=== PATIENT | female | born 1955 | race Caucasian/White ===

== ENCOUNTER → 2016-11-20 | Outpatient (CLI) | payer OTHER | LOC: MC.RAD 08:48 | DX: Z12.31 Encounter for screening mammogram for malignant neoplasm of breast (principal) ==

== ENCOUNTER → 2017-11-26 | Outpatient (CLI) | payer OTHER | LOC: MC.RAD 06:46 | DX: Z12.31 Encounter for screening mammogram for malignant neoplasm of breast (principal) ==

== ENCOUNTER → 2018-01-07 | Outpatient (CLI) | payer OTHER | LOC: COL.PUL 10:01 | DX: R06.02 Shortness of breath (principal) | CPT/HCPCS: J7674 ==

== ENCOUNTER → 2018-01-25 | Outpatient (CLI) | payer OTHER | LOC: COL.VAS 09:00 | DX: Z53.8 Procedure and treatment not carried out for other reasons (principal); R06.02 Shortness of breath ==

== ENCOUNTER → 2018-02-01 | Outpatient (CLI) | payer OTHER | LOC: COL.VAS 14:15 | DX: I34.0 Nonrheumatic mitral (valve) insufficiency (principal) ==

== ENCOUNTER → 2018-10-06 | Outpatient (CLI) | payer MEDICARE, OTHER ==
[~2018-10-06] VITALS: Ht 156.2 cm; Wt 100.2 kg
[~2018-10-06] MED LIST: ASPIRIN E.C. 8181 MG PO; CELEBREX 200MG200 MG PO; CENTRUM SILVER1 TAB PO; CLARITIN 1010 MG/TAB PO; COENZYME Q-1030 MG PO; DYRENIUM 50MG C50 MG PO; HCTZ 25MG TAB25 MG PO; LIPITOR 10MG10 MG PO; MASON NATURAL1200 MG PO; NASONEX SPRAY17 GM NS; NORVASC 10MG10 MG PO; PRILOSEC 20MG20 MG PO; RT ADVAIR 228 DISKUS IH; SINGULAIR 110 MG/TAB PO; VITAMIN D31000 I1 PO; VOLTAREN GEL 1%1 TU TP; WELLBUTRIN XL150 MG PO
[2018-10-06 08:16] VITALS: BP 136/80; PULSE 68
== END ==
LOC: LIGHT 09-23 11:13
DX: E88.81 Metabolic syndrome and other insulin resistance (principal); R73.01 Impaired fasting glucose; E66.01 Morbid (severe) obesity due to excess calories; I10 Essential (primary) hypertension; Z68.41 Body mass index [BMI] 40.0-44.9, adult; Z71.3 Dietary counseling and surveillance
CPT/HCPCS: G0463

== ENCOUNTER → 2018-10-18 | Outpatient (CLI) | payer MEDICARE, OTHER ==
[~2018-10-18] VITALS: Ht 156.2 cm; Wt 100.0 kg
[2018-10-18 15:44] VITALS: BP 150/70; PULSE 92
== END ==
LOC: LIGHT 11:41
DX: E88.81 Metabolic syndrome and other insulin resistance (principal); R73.01 Impaired fasting glucose; I10 Essential (primary) hypertension; E66.01 Morbid (severe) obesity due to excess calories; Z68.41 Body mass index [BMI] 40.0-44.9, adult; Z71.3 Dietary counseling and surveillance

== ENCOUNTER → 2018-10-26 | Outpatient (CLI) | payer MEDICARE, OTHER | LOC: LIGHT 13:41 | DX: E88.81 Metabolic syndrome and other insulin resistance (principal); R73.01 Impaired fasting glucose; I10 Essential (primary) hypertension; E66.01 Morbid (severe) obesity due to excess calories; Z68.41 Body mass index [BMI] 40.0-44.9, adult; Z71.3 Dietary counseling and surveillance ==

== ENCOUNTER → 2018-11-04 | Outpatient (CLI) | payer MEDICARE, OTHER ==
[~2018-11-04] MED LIST changes: +RIOMET500 MG/5 M
[2018-11-04 15:36] VITALS: BP 146/82; PULSE 76
== END ==
LOC: LIGHT 14:43
DX: E88.81 Metabolic syndrome and other insulin resistance (principal); R73.01 Impaired fasting glucose; I10 Essential (primary) hypertension; E66.01 Morbid (severe) obesity due to excess calories; Z71.3 Dietary counseling and surveillance
CPT/HCPCS: G0463

== ENCOUNTER → 2018-12-02 | Outpatient (CLI) | payer MEDICARE, OTHER ==
[~2018-12-02] MED LIST changes: +PROAIR HFA0.09 MG/AC IH; +RT SPIRIVA18 MCG IH
== END ==
LOC: LIGHT 14:33
DX: E88.81 Metabolic syndrome and other insulin resistance (principal); R73.01 Impaired fasting glucose; I10 Essential (primary) hypertension; E66.01 Morbid (severe) obesity due to excess calories; Z71.3 Dietary counseling and surveillance
CPT/HCPCS: G0463

== ENCOUNTER → 2018-12-21 | Outpatient (CLI) | payer MEDICARE, OTHER | LOC: MC.RAD 07:21 | DX: Z12.31 Encounter for screening mammogram for malignant neoplasm of breast (principal) ==

== ENCOUNTER → 2019-01-13 | Outpatient (CLI) | payer MEDICARE, OTHER ==
[~2019-01-13] MED LIST changes: +GLUCOPHAGE500 MG/TAB PO; -RIOMET500 MG/5 M
== END ==
LOC: LIGHT 14:25
DX: E88.81 Metabolic syndrome and other insulin resistance (principal); R73.01 Impaired fasting glucose; I10 Essential (primary) hypertension; E66.01 Morbid (severe) obesity due to excess calories; Z71.3 Dietary counseling and surveillance
CPT/HCPCS: G0463

== ENCOUNTER → 2019-03-10 | Outpatient (CLI) | payer MEDICARE, OTHER | LOC: LIGHT 12:55 | DX: E88.81 Metabolic syndrome and other insulin resistance (principal); R73.01 Impaired fasting glucose; I10 Essential (primary) hypertension; E66.01 Morbid (severe) obesity due to excess calories; Z71.3 Dietary counseling and surveillance | CPT/HCPCS: G0463 ==

== ENCOUNTER → 2019-06-30 | Outpatient (CLI) | payer MEDICARE, OTHER | LOC: LIGHT 11:46 | DX: E88.81 Metabolic syndrome and other insulin resistance (principal); R73.01 Impaired fasting glucose; I10 Essential (primary) hypertension; E66.01 Morbid (severe) obesity due to excess calories; Z71.3 Dietary counseling and surveillance | CPT/HCPCS: G0463 ==

== ENCOUNTER → 2019-10-06 | Outpatient (CLI) | payer MEDICARE, OTHER ==
[~2019-10-06] VITALS: Ht 156.2 cm; Wt 80.5 kg
[2019-10-17 08:27] VITALS: BP 124/80; PULSE 72
[2019-10-31 08:33] VITALS: BP 132/90; PULSE 76
== END ==
LOC: LIGHT 09-22 13:44
DX: E88.81 Metabolic syndrome and other insulin resistance (principal); R73.01 Impaired fasting glucose; I10 Essential (primary) hypertension
CPT/HCPCS: G0463

== ENCOUNTER → 2019-11-03 | Outpatient (CLI) | payer MEDICARE, OTHER | LOC: LIGHT 13:03 | DX: E88.81 Metabolic syndrome and other insulin resistance (principal); R73.01 Impaired fasting glucose; I10 Essential (primary) hypertension | CPT/HCPCS: G0463 ==

== ENCOUNTER 2021-10-29 08:24 | Emergency (ER) | payer MEDICARE, OTHER ==
[~2021-10-29] VITALS: Ht 154.9 cm; Wt 88.2 kg
[2021-10-29 08:25] VITALS: TEMP 98.1
[2021-10-29] MEDS ORDERED: PERCOCET 325 MG1 TA2 PO (10:52)
[2021-10-29 11:07] VITALS: BP 133/81; PULSE 89
== END 2021-10-29 11:09 | disposition home or self-care (01) ==
LOC: COL.ER 08:24
DX: S82.54XA Nondisplaced fracture of medial malleolus of right tibia, initial encounter for closed fracture (principal); W00.0XXA Fall on same level due to ice and snow, initial encounter

== ENCOUNTER 2022-02-19 08:30 | Outpatient (RCR) | payer MEDICARE, OTHER ==
[~2022-02-19 08:30] MED LIST changes: +PERCOCET 325 MG1 TA2 PO
== END 2022-02-20 | disposition home or self-care (01) ==
LOC: WSPT
DX: M25.571 Pain in right ankle and joints of right foot (principal)

== ENCOUNTER 2022-03-20 08:30 | Outpatient (RCR) | payer MEDICARE, OTHER | END 2022-03-23 | disposition home or self-care (01) | LOC: WSPT | DX: M25.571 Pain in right ankle and joints of right foot (principal) ==